=== PATIENT | female | born 1970 | race American Indian/Alaskan Native ===

== ENCOUNTER 2019-04-25 14:55 | Outpatient (CLI) | payer BC ==
--- NOTE | 2019-04-26 16:05 | Ultrasound Report ---
BILATERAL DIGITAL DIAGNOSTIC MAMMOGRAM WITH CAD -- 04/25/2019 BILATERAL COMPLETE BREAST ULTRASOUND INDICATION: Recall for bilateral asymmetries. F/U abnormal mammogram TECHNIQUE: Digital bilateral mammographic imaging was performed. Spot compression views were obtaine d. Complete ultrasound of all four (4) quadrants was performed. This examination was interpreted with the benefit of Computer-Aided Detection (CAD) analysis. COMPARISON: 04/02/2019 FINDINGS: Breast Density: The breasts are heterogeneously dense, which may obscure small masses. MAMMOGRAPHIC FINDINGS: Bilateral spot compression views demonstrate persistent bilateral circumscribe d densities. ULTRASOUND FINDINGS: Complete sonographic evaluation of all 4 quadrants and retroareolar region was p erformed. Ultrasound of the right breast demonstrated multiple benign cysts. A cyst at 12:00 3 cm f rom the nipple measures 4 x 3 x 4 mm. A cyst at 7:00 7 cm from the nipple measures 1.1 x 0.7 x 1.3 cm . A cyst at 6:00 6 cm from the nipple measures 8 x 5 x 7 mm. A cyst at 5:00 5 cm from the nipple ping ures 4 x 3 x 6 mm. Several additional smaller cysts. Mild benign duct ectasia. No solid mass or suspi cious shadowing. Ultrasound of the left breast demonstrated several benign cysts. The largest is at 2:00 6 cm from the nipple measuring 10 x 5 x 9 mm. It correlates with a mammographic density. Mild benign duct ectasia. No solid mass or suspicious shadowing. IMPRESSION: Bilateral benign cysts and no suspicious findings. Follow up recommendation: Routine yearly BI-RADS Category 2: Benign. A "normal" or negative report should not discourage follow up or biopsy of a clinically significant f inding. A written summary of these findings will be mailed to the patient. The patient will be entered into a mammography reporting system which will generate a reminder letter for the patient's next appointmen t at the appropriate interval. According to the [employer], yearly mammograms are recommended starting at age 40 and continuing as long as a woman is in good health. Breast MRI is recommended for women with an ratna roximately 20-25% or greater lifetime risk of breast cancer, including women with a strong family his tory of breast or ovarian cancer and women who have been treated for Hodgkin's disease. Signer Name: Toño Alfaro MD Signed: 04/26/2019 4:01 PM Workstation Name: [id number]
== END 2019-04-25 14:56 | disposition home or self-care (01) ==
LOC: SPVWC 14:55
PROVIDERS: ATTEND Family Medicine
DX: R92.8 Other abnormal and inconclusive findings on diagnostic imaging of breast (principal)
CPT/HCPCS: 77066

== ENCOUNTER 2021-03-06 03:44 | Inpatient (IN) | payer BC ==
--- NOTE | 2021-03-06 05:26 | XRay Report ---
CHEST 1 VIEW INDICATION / CLINICAL INFORMATION: FEVER. FINDINGS: SUPPORT DEVICES: None. HEART / MEDIASTINUM: No significant abnormality. LUNGS / PLEURA: Severe bilateral airspace pneumonia. Signer Name: Dontrell Nugent MD Signed: 03/06/2021 5:21 AM Workstation Name: [id number]
[2021-03-06 05:40] LABS: Basophils % (Auto) 0.3 % (0.0-1.8); Hematocrit 32.4 % (30.3-42.9); Hemoglobin 10.8 gm/dl (10.1-14.3); Lymphocytes # (Auto) 0.9 K/mm3 (1.2-5.4); Lymphocytes % (Auto) 17.3 % (13.4-35.0); Mean Corpuscular HGB Conc 33 % (30-34); Mean Corpuscular Volume 86 fl (79-97); Monocytes # (Auto) 0.4 K/mm3 (0.0-0.8); Monocytes % (Auto) 7.7 % (0.0-7.3); Platelet Count 285 K/mm3 (140-440); Red Blood Count 3.77 M/mm3 (3.65-5.03); Red Cell Distribution Width 14.8 % (13.2-15.2)
[2021-03-06 06:26] LABS: Alanine Aminotransferase 13 units/L (7-56); Albumin 3.9 g/dL (3.9-5); BUN/Creatinine Ratio 6; Blood Urea Nitrogen 6 mg/dL (7-17); Calcium 8.7 mg/dL (8.4-10.2); Hemolysis Index 0
--- NOTE | 2021-03-06 08:17 | Emergency Department Report ---
ED Shortness of Breath HPI - General Chief Complaint: Fever Stated Complaint: COUGHING WEAK FEVER Time Seen by Provider: 03/06/21 07:57 Source: patient Mode of arrival: Ambulatory Limitations: No Limitations - History of Present Illness Initial Comments: 50-year-old female, history of hypertension, "enlarged heart", presents to ED with Covid-like symptoms x1 week. Patient's reports fever, cough, dyspnea on exertion. Patient is unvaccinated. She reports that she underwent COVID-19 testing the day that her symptoms began, 1 week ago, and test result was negative. Patient states her 17-year-old daughter was also symptomatic and had a negative Covid result. Patient states her daughter has since improved, but her symptoms have worsened. 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 MD Complaint: shortness of breath, cough -: week(s) (1) Severity: moderate Consistency: intermittent Improves With: rest Worsens With: exertion Context: recent URI Associated Symptoms: fever, cough Treatments Prior to Arrival: none - Related Data Home Oxygen Therapy: No Allergies Allergy/AdvReac Type Severity Reaction Status Date / Time losartan Allergy Swelling Verified 03/06/21 04:23 ED Review of Systems ROS: Stated complaint: COUGHING WEAK FEVER Other details as noted in HPI Comment: All other systems reviewed and negative Constitutional: fever, weakness Respiratory: cough, shortness of breath Gastrointestinal: denies: vomiting, diarrhea Neurological: headache ED Past Medical Hx - Past Medical History Previous Medical History?: Yes Hx Hypertension: Yes - Surgical History Past Surgical History?: Yes Additional Surgical History: c section x 2 ED Physical Exam - General Limitations: No Limitations General appearance: alert, in no apparent distress - Head Head exam: Present: atraumatic, normocephalic - Eye Eye exam: Present: normal appearance, EOMI - ENT ENT exam: Present: mucous membranes moist - Neck Neck exam: Present: normal inspection - Respiratory Respiratory exam: Present: decreased breath sounds - Cardiovascular Cardiovascular Exam: Present: normal rhythm, tachycardia - GI/Abdominal GI/Abdominal exam: Present: soft. Absent: distended, tenderness - Extremities Exam Extremities exam: Present: normal inspection - Neurological Exam Neurological exam: Present: alert, oriented X3 - Psychiatric Psychiatric exam: Present: normal affect, normal mood - Skin Skin exam: Present: warm, dry, intact, normal color ED Course Vital Signs 03/06/21 03/06/21 03/06/21 04:26 08:05 08:16 Temperature 98.8 F Pulse Rate 119 H Respiratory 16 Rate Blood Pressure 120/86 143/87 O2 Sat by Pulse 96 100 100 Oximetry 03/06/21 03/06/21 03/06/21 08:31 08:45 09:01 Temperature Pulse Rate Respiratory Rate Blood Pressure 143/87 121/83 O2 Sat by Pulse 100 100 100 Oximetry 03/06/21 03/06/21 03/06/21 09:15 09:31 10:01 Temperature Pulse Rate 103 H 101 H 110 H Respiratory 16 18 28 H Rate Blood Pressure 121/83 121/83 134/83 O2 Sat by Pulse 100 100 100 Oximetry 03/06/21 03/06/21 10:31 11:01 Temperature Pulse Rate 99 H 94 H Respiratory 18 20 Rate Blood Pressure 134/83 133/82 O2 Sat by Pulse 100 100 Oximetry ED Medical Decision Making - Lab Data Result diagrams: 03/06/21 05:17 03/06/21 08:28 - Radiology Data Radiology results: report reviewed, image reviewed - Medical Decision Making 50-year-old unvaccinated female with Covid-like symptoms, presents to ED with shortness of breath. O2 sats decreased to 68% on room air with ambulation. Chest x-ray shows bilateral pneumonia. Covid markers ordered. Patient given Rocephin, azithromycin, and Decadron. Patient will be admitted by hospitalist, Dr. Stafford, for further management. - Differential Diagnosis Pneumonia, COVID-19 Critical Care Time: Yes Critical care time in (mins) excluding proc time.: 35 Critical care attestation.: If time is entered above; I have spent that time in minutes in the direct care of this critically ill patient, excluding procedure time. Critical Care Time: 35 min ED Disposition Clinical Impression: Suspected COVID-19 virus infection, Pneumonia, Acute respiratory failure with hypoxia Disposition: ADMITTED INPATIENT Is pt being admited?: Yes Condition: Stable Time of Disposition: 08:28
[2021-03-06] MEDS ORDERED: AZITHROMYCIN 250 MG TAB PO ONE (08:26)
[2021-03-06] MEDS ORDERED: cefTRIAXone/NS 1 GM/50 ML 1 GM/50 ML BAG IV ONE (08:26)
[2021-03-06] MEDS ORDERED: DEXAMETHASONE 4 MG TAB PO ONE (08:26)
[2021-03-06 09:49] LABS: C-Reactive Protein 1.5 mg/dL (0.00-1.30)
[2021-03-06] MEDS ORDERED: MORPHINE 2 MG/1 ML INJ IV PRN (10:00)
[2021-03-06] MEDS ORDERED: MORPHINE 4 MG/1 ML INJ IV PRN (10:00)
[2021-03-06] MEDS ORDERED: ONDANSETRON 4 MG/2 ML INJ IV PRN (10:00)
[2021-03-06] MEDS ORDERED: ACETAMINOPHEN 325 MG TAB PO PRN (10:00)
--- NOTE | 2021-03-06 10:29 | History and Physical Report ---
History of Present Illness Date of examination: 03/06/21 Date of admission: 03/06/21 08:37 Chief complaint: SOB Cough Fever History of present illness: Patient is 50 yo presented with fever, cough and shortness of breath for 1 week. She states she tested negative for Covid few days ago. Symptoms were getting worse therefore came to ED. 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 She was seen and evaluated in Emergency Department. Chest X ray revealed bilateral pneumonia concerning for Covid. Will admit for bilateral pneumonia, acute respiratory failure to r/o Covid-19 infection. Past History Past Medical History: hypertension Past Surgical History: Social history: lives with family, full code. denies: smoking Family history: no significant family history Medications and Allergies Allergies Allergy/AdvReac Type Severity Reaction Status Date / Time losartan Allergy Swelling Verified 03/06/21 04:23 Active Meds: Active Medications Acetaminophen (Acetaminophen 325 Mg Tab) 650 mg PO Q4H PRN PRN Reason: Pain MILD(1-3)/Fever >100.5/GARCIA Heparin Sodium (Porcine) (Heparin 5,000 Unit/1 Ml Vial) 5,000 unit SUB-Q Q8HR NGUYEN Morphine Sulfate (Morphine 2 Mg/1 Ml Inj) 2 mg IV Q4H PRN PRN Reason: Pain, Moderate (4-6) Morphine Sulfate (Morphine 4 Mg/1 Ml Inj) 4 mg IV Q4H PRN PRN Reason: Pain , Severe (7-10) Ondansetron HCl (Ondansetron 4 Mg/2 Ml Inj) 4 mg IV Q8H PRN PRN Reason: Nausea And Vomiting Sodium Chloride (Sodium Chloride 0.9% 10 Ml Flush Syringe) 10 ml IV BID NGUYEN Sodium Chloride (Sodium Chloride 0.9% 10 Ml Flush Syringe) 10 ml IV PRN PRN PRN Reason: LINE FLUSH Review of Systems All systems: negative (No headache, no abd pain, no leg swelling. All other systems reviewed and are negative.) Exam - Physical Exam Narrative exam: Gen:Not in acute distress, lying in bed, HEENT:Normocephalic, atraumatic Neck:supple, no JVD Lungs: bilateral rales, no wheeze Heart:S1 and S2 reg, no murmurs, rubs or gallop Abd:Soft, non tender, non distended, normal bowel sounds Ext:No edema. no clubbing, no cyanosis Neuro:Awake, alert, oriented X 3, moves all ext, No focal neurological signs - Constitutional Vitals: Temp Pulse Resp BP Pulse Ox 98.8 F 103 H 16 121/83 100 03/06/21 04:26 03/06/21 09:15 03/06/21 09:15 03/06/21 09:15 03/06/21 09:15 Results - Labs CBC & Chem 7: 03/06/21 05:17 03/06/21 08:28 Labs: Abnormal lab results 03/06/21 03/06/21 03/06/21 Range/Units 05:17 05:17 08:28 [place] % (Auto) 7.7 H (0.0-7.3) % Lymph # (Auto) 0.9 L (1.2-5.4) K/mm3 Seg Neutrophils % 74.7 H (40.0-70.0) % Sodium 131 L (137-145) mmol/L Potassium 3.5 L (3.6-5.0) mmol/L Chloride 94.7 L (98-107) mmol/L BUN 6 L (7-17) mg/dL Lactate Dehydrogenase 222 H (91-180) units/L C-Reactive Protein 1.50 H (0.00-1.30) mg/dL Assessment and Plan Acute resp failure due to bilateral pneumonia Admit Supplemental Oxygen, put on 4 l/min because sats drooped down to 68 on ambulation Rocephin iv Zithromax iv Decadron iv Bilateral pneumonia to r/o Covid Cont iv Antibiotics Hypertension Monitor BP Hyponatremia Monitor Hypokalemia Replace orally DVT prophylaxis Heparin subcut.
[2021-03-06] MEDS: HEPARIN 5,000 UNIT/1 ML VIAL SUB-Q SCH ×3 (11:09→21:43)
[2021-03-07] MEDS: HEPARIN 5,000 UNIT/1 ML VIAL SUB-Q SCH ×2 (05:45→14:45)
[2021-03-07 07:48] LABS: Basophils % (Auto) 0.1 % (0.0-1.8); Hemoglobin 10.6 gm/dl (10.1-14.3); Lymphocytes # (Auto) 1.1 K/mm3 (1.2-5.4); Lymphocytes % (Auto) 26.2 % (13.4-35.0); Mean Corpuscular HGB Conc 33 % (30-34); Mean Corpuscular Volume 86 fl (79-97); Monocytes # (Auto) 0.5 K/mm3 (0.0-0.8); Monocytes % (Auto) 12.9 % (0.0-7.3); Platelet Count 272 K/mm3 (140-440); Red Blood Count 3.72 M/mm3 (3.65-5.03); Red Cell Distribution Width 14.7 % (13.2-15.2)
[2021-03-07] MEDS ORDERED: AZITHROMYCIN/NS 500 MG/250 ML 500 MG/250 ML BAG IV SCH (08:00)
[2021-03-07] MEDS ORDERED: cefTRIAXone/NS 1 GM/50 ML 1 GM/50 ML BAG IV SCH (08:00)
[2021-03-07 08:10] LABS: Alanine Aminotransferase 14 units/L (7-56); Albumin 3.5 g/dL (3.9-5); BUN/Creatinine Ratio 11; Blood Urea Nitrogen 9 mg/dL (7-17); Calcium 8.9 mg/dL (8.4-10.2); Hemolysis Index 2
[2021-03-07 09:37] LABS: C-Reactive Protein 1.9 mg/dL (0.00-1.30)
[2021-03-07] MEDS ORDERED: dexAMETHasone 4 MG/ML VIAL IV SCH (10:00)
--- NOTE | 2021-03-07 10:17 | Progress Note ---
Assessment and Plan Assessment and plan: Covid-19 pneumonia Positive 03/06 Acute resp failure due to bilateral pneumonia Admit Supplemental Oxygen, put on 4 l/min because sats dropped down to 68 on ambulation Rocephin iv Zithromax iv Decadron iv Bilateral pneumonia due to Covid Cont iv Antibiotics Hypertension Monitor BP Hyponatremia Monitor Hypokalemia Replace orally DVT prophylaxis Heparin subcut. 03/07/21 patient with Covid -19 infection with acute respiratory failure. On supplemental Oxygen Consult ID Physician. Get serial infl markers. Continue Rocephin, Zithromax,Decadron iv daily History Interval history: shortness of breath Cough Hospitalist Physical - Physical exam Narrative exam: Gen:Not in acute distress, lying in bed, HEENT:Normocephalic, atraumatic Neck:supple, no JVD Lungs: bilateral rales, no wheeze Heart:S1 and S2 reg, no murmurs, rubs or gallop Abd:Soft, non tender, non distended, normal bowel sounds Ext:No edema. no clubbing, no cyanosis Neuro:Awake, alert, oriented X 3, moves all ext, No focal neurological signs - Constitutional Vitals: Temp Pulse Resp BP Pulse Ox 99.1 F 94 H 35 H 111/70 97 03/07/21 08:30 03/07/21 09:31 03/07/21 09:31 03/07/21 09:31 03/07/21 09:31 Results - Labs CBC & Chem 7: 03/07/21 06:52 03/07/21 08:48 Labs: Laboratory Last Values WBC 4.2 K/mm3 (4.5-11.0) L 03/07/21 06:52 RBC 3.72 M/mm3 (3.65-5.03) 03/07/21 06:52 Hgb 10.6 gm/dl (10.1-14.3) 03/07/21 06:52 Hct 32.0 % (30.3-42.9) 03/07/21 06:52 MCV 86 fl (79-97) 03/07/21 06:52 MCH 29 pg (28-32) 03/07/21 06:52 MCHC 33 % (30-34) 03/07/21 06:52 RDW 14.7 % (13.2-15.2) 03/07/21 06:52 Plt Count 272 K/mm3 (140-440) 03/07/21 06:52 Lymph % (Auto) 26.2 % (13.4-35.0) 03/07/21 06:52 [place] % (Auto) 12.9 % (0.0-7.3) H 03/07/21 06:52 Eos % (Auto) 0.0 % (0.0-4.3) 03/07/21 06:52 Baso % (Auto) 0.1 % (0.0-1.8) 03/07/21 06:52 Lymph # (Auto) 1.1 K/mm3 (1.2-5.4) L 03/07/21 06:52 [place] # (Auto) 0.5 K/mm3 (0.0-0.8) 03/07/21 06:52 Eos # (Auto) 0.0 K/mm3 (0.0-0.4) 03/07/21 06:52 Baso # (Auto) 0.0 K/mm3 (0.0-0.1) 03/07/21 06:52 Seg Neutrophils % 60.8 % (40.0-70.0) 03/07/21 06:52 Seg Neutrophils # 2.5 K/mm3 (1.8-7.7) 03/07/21 06:52 D-Dimer 159.27 ng/mlDDU (0-234) 03/07/21 08:48 Sodium 133 mmol/L (137-145) L 03/07/21 06:52 Potassium 4.1 mmol/L (3.6-5.0) 03/07/21 06:52 Chloride 97.2 mmol/L (98-107) L 03/07/21 06:52 Carbon Dioxide 26 mmol/L (22-30) 03/07/21 06:52 Anion Gap 14 mmol/L 03/07/21 06:52 BUN 9 mg/dL (7-17) 03/07/21 06:52 Creatinine 0.8 mg/dL (0.6-1.2) 03/07/21 06:52 Estimated GFR > 60 ml/min 03/07/21 06:52 BUN/Creatinine Ratio 11 % 03/07/21 06:52 Glucose 136 mg/dL (65-100) H 03/07/21 08:48 Calcium 8.9 mg/dL (8.4-10.2) 03/07/21 06:52 Ferritin 39.2 ng/mL (10.0-200.0) 03/07/21 08:48 Total Bilirubin 0.30 mg/dL (0.1-1.2) 03/07/21 06:52 AST 26 units/L (5-40) 03/07/21 06:52 ALT 14 units/L (7-56) 03/07/21 06:52 Alkaline Phosphatase 53 units/L (35-129) 03/07/21 06:52 Lactate Dehydrogenase 235 units/L (91-180) H 03/07/21 08:48 C-Reactive Protein 1.90 mg/dL (0.00-1.30) H 03/07/21 08:48 Total Protein 7.3 g/dL (6.3-8.2) 03/07/21 06:52 Albumin 3.5 g/dL (3.9-5) L 03/07/21 06:52 Albumin/Globulin Ratio 0.9 % 03/07/21 06:52 Procalcitonin < 0.05 ng/mL (<0.15) 03/06/21 08:28 Coronavirus (PCR) Positive (Negative) A 03/06/21 09:21 Microbiology: Microbiology 03/06/21 12:24 Peripheral/Venous Blood Culture - Preliminary Culture in Progress 03/06/21 12:24 Peripheral/Venous Blood Culture - Preliminary Culture in Progress Active Medications - Current Medications Current Medications: Generic Name Dose Route Start Last Admin Trade Name Chapis PRN Reason Stop Dose Admin Acetaminophen 650 mg 03/06/21 10:00 Acetaminophen 325 Mg Tab PO Q4H PRN Pain MILD(1-3)/Fever >100.5/GARCIA Dexamethasone 6 mg 03/07/21 10:00 Dexamethasone 4 Mg/Ml Vial IV 03/15/21 10:01 DAILY NGUYEN Heparin Sodium (Porcine) 5,000 unit 03/06/21 10:00 03/07/21 05:45 Heparin 5,000 Unit/1 Ml Vial SUB-Q 5,000 unit Q8HR NGUYEN Administration Azithromycin 500 mg in 250 mls @ 250 mls/hr 03/07/21 08:00 03/07/21 09:49 Zithromax/Ns IV 03/10/21 08:59 250 mls/hr Q24H NGUYEN Administration Ceftriaxone Sodium 1 gm in 50 mls @ 100 mls/hr 03/07/21 08:00 03/07/21 08:55 Rocephin/Ns 1 Gm/50 Ml IV 03/10/21 08:29 100 mls/hr Q24H NGUYEN Administration Protocol Morphine Sulfate 2 mg 03/06/21 10:00 Morphine 2 Mg/1 Ml Inj IV Q4H PRN Pain, Moderate (4-6) Morphine Sulfate 4 mg 03/06/21 10:00 Morphine 4 Mg/1 Ml Inj IV Q4H PRN Pain , Severe (7-10) Ondansetron HCl 4 mg 03/06/21 10:00 Ondansetron 4 Mg/2 Ml Inj IV Q8H PRN Nausea And Vomiting Sodium Chloride 10 ml 03/06/21 10:00 03/06/21 22:00 Sodium Chloride 0.9% 10 Ml Flush Syringe IV 10 ml BID NGUYEN Administration Sodium Chloride 10 ml 03/06/21 10:00 Sodium Chloride 0.9% 10 Ml Flush Syringe IV PRN PRN LINE FLUSH
[2021-03-07] MEDS ORDERED: dexAMETHasone 20 MG/5 ML VIAL ONE (10:38)
--- NOTE | 2021-03-07 11:39 | Consultation ---
History of Present Illness - Reason for Consult Consult date: 03/07/21 COVID-19 pneumonia Requesting physician: YASMANY PARMAR - History of Present Illness The patient is a 50-year-old female with hypertension admitted to the hospital with cough, shortness of breath, fever going on for a week. 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 Upon evaluation in the emergency room, chest x-ray showed bilateral pneumonia. Labs have revealed mild leukopenia, D- dimer 159, CRP 1.5, ferritin 28.7, LDH 235, procalcitonin 0.05. Patient tested positive for COVID-19. She has been hypoxic requiring oxygen by nasal cannula at 2 L/min. Review of Systems: reviewed in the chart, unable to obtain, minimize risk of transmission Past History Past Medical History: hypertension Past Surgical History: Social history: lives with family, full code. denies: smoking Family history: no significant family history Medications and Allergies Allergies Allergy/AdvReac Type Severity Reaction Status Date / Time losartan Allergy Swelling Verified 03/06/21 04:23 Active Meds: Active Medications Acetaminophen (Acetaminophen 325 Mg Tab) 650 mg PO Q4H PRN PRN Reason: Pain MILD(1-3)/Fever >100.5/GARCIA Heparin Sodium (Porcine) (Heparin 5,000 Unit/1 Ml Vial) 5,000 unit SUB-Q Q8HR [facility] Last Admin: 03/07/21 05:45 Dose: 5,000 unit Documented by: Morphine Sulfate (Morphine 2 Mg/1 Ml Inj) 2 mg IV Q4H PRN PRN Reason: Pain, Moderate (4-6) Morphine Sulfate (Morphine 4 Mg/1 Ml Inj) 4 mg IV Q4H PRN PRN Reason: Pain , Severe (7-10) Ondansetron HCl (Ondansetron 4 Mg/2 Ml Inj) 4 mg IV Q8H PRN PRN Reason: Nausea And Vomiting Sodium Chloride (Sodium Chloride 0.9% 10 Ml Flush Syringe) 10 ml IV BID [facility] Last Admin: 03/07/21 10:56 Dose: 10 ml Documented by: Sodium Chloride (Sodium Chloride 0.9% 10 Ml Flush Syringe) 10 ml IV PRN PRN PRN Reason: LINE FLUSH Physical Examination - Physical Exam Narrative exam: Physical Exam (reviewed in chart to minimize risk of transmission) Constitutional: deferred Head, Ears, Nose: deferred Eyes: deferred Neck: deferred Oral: deferred Cardiovascular: deferred Respiratory: deferred GI: deferred Musculoskeletal: deferred Skin: deferred Hem/Lymphatic: deferred Psych: deferred Neurological: deferred - Constitutional Vitals: Vital Signs Temp Pulse Resp BP Pulse Ox 99.1 F 94 H 35 H 111/70 97 03/07/21 08:30 03/07/21 09:31 03/07/21 09:31 03/07/21 09:31 03/07/21 09:31 Temperature -Last 24 Hours Temperature 99.1 F Temperature 98.8 F Results - Labs CBC & Chem 7: 03/07/21 06:52 03/07/21 08:48 Labs: Abnormal lab results 03/06/21 03/07/21 03/07/21 Range/Units 09:21 06:52 06:52 WBC 4.2 L (4.5-11.0) K/mm3 [place] % (Auto) 12.9 H (0.0-7.3) % Lymph # (Auto) 1.1 L (1.2-5.4) K/mm3 Sodium 133 L (137-145) mmol/L Chloride 97.2 L (98-107) mmol/L Glucose (65-100) mg/dL Lactate Dehydrogenase (91-180) units/L C-Reactive Protein (0.00-1.30) mg/dL Albumin 3.5 L (3.9-5) g/dL Coronavirus (PCR) Positive A (Negative) 03/07/21 Range/Units 08:48 WBC (4.5-11.0) K/mm3 [place] % (Auto) (0.0-7.3) % Lymph # (Auto) (1.2-5.4) K/mm3 Sodium (137-145) mmol/L Chloride (98-107) mmol/L Glucose 136 H (65-100) mg/dL Lactate Dehydrogenase 235 H (91-180) units/L C-Reactive Protein 1.90 H (0.00-1.30) mg/dL Albumin (3.9-5) g/dL Coronavirus (PCR) (Negative) - Imaging and Cardiology Chest x-ray: report reviewed, image reviewed (b/l airspace disease) Assessment and Plan Cultures: SARS CoV2 PCR: Positive 03/06/2021 blood culture: Process A/P: 50-year-old female with hypertension admitted with: #Bilateral pneumonia: Secondary to COVID-19 #Acute hypoxic respiratory failure: Secondary to above #Leukopenia: Likely secondary to viral illness Recs: IV/PO Dexamethasone x 10 days IV remdesivir x 5 days Does not meet criteria for Actemra prophylactic anticoagulation based on d-dimer per hospital protocol procalcitonin is low, abx not needed trend ferritin, d-dimer, CRP every 2-3 days Rangel Shaw MD, FACP [facility] O: [phone] F: [phone]
[2021-03-07] MEDS ORDERED: REMDESIVIR 200 MG in SODIUM CHLORIDE 0.9% 250ML 250 ML IV ONE (12:38)
[2021-03-07] MEDS ORDERED: dexAMETHasone 4 MG/ML VIAL IV ONE (13:26)
[2021-03-07 13:57] LABS: Alanine Aminotransferase 14 units/L (7-56); Albumin 3.7 g/dL (3.9-5); BUN/Creatinine Ratio 10; Blood Urea Nitrogen 9 mg/dL (7-17); Calcium 9.1 mg/dL (8.4-10.2); Hemolysis Index 0
[2021-03-07] MEDS: SODIUM CHLORIDE 0.9% 50 ML IVPB IV SCH (21:20)
[2021-03-08] MEDS: HEPARIN 5,000 UNIT/1 ML VIAL SUB-Q SCH ×4 (00:24→22:55)
[2021-03-08 08:54] LABS: Alanine Aminotransferase 14 units/L (7-56); Albumin 3.6 g/dL (3.9-5); Blood Urea Nitrogen 12 mg/dL (7-17); Hemolysis Index 0
[2021-03-08 08:59] LABS: BUN/Creatinine Ratio 17
[2021-03-08] MEDS: dexAMETHasone 4 MG/ML VIAL IV SCH (11:06)
--- NOTE | 2021-03-08 12:45 | Progress Note ---
Assessment and Plan Assessment and plan: Covid-19 pneumonia Positive 03/06/21 Acute resp failure due to bilateral pneumonia Admit Supplemental Oxygen, put on 4 l/min because sats dropped down to 68 on ambulation Rocephin iv Zithromax iv Decadron iv Bilateral pneumonia due to Covid Cont iv Antibiotics Hypertension Monitor BP Hyponatremia Monitor Hypokalemia Replace orally DVT prophylaxis Heparin subcut. 03/07/21 patient with Covid -19 infection with acute respiratory failure. On supplemental Oxygen Consult ID Physician. Get serial infl markers. Continue Rocephin, Zithromax,Decadron iv daily 03/08/21 Patient with Covid -19 pneumonia with acute respiratory failure. On supplemental Oxygen ID consulted, following Cont Remdesivir, Decadron History Interval history: shortness of breath Cough Hospitalist Physical - Physical exam Narrative exam: Gen:Not in acute distress, lying in bed, HEENT:Normocephalic, atraumatic Neck:supple, no JVD Lungs: bilateral rales, no wheeze Heart:S1 and S2 reg, no murmurs, rubs or gallop Abd:Soft, non tender, non distended, normal bowel sounds Ext:No edema. no clubbing, no cyanosis Neuro:Awake, alert, oriented X 3, moves all ext, No focal neurological signs - Constitutional Vitals: Temp Pulse Resp BP Pulse Ox 99.1 F 84 31 H 115/78 97 03/07/21 08:30 03/08/21 08:01 03/07/21 17:01 03/08/21 08:01 03/08/21 08:01 Results - Labs CBC & Chem 7: 03/07/21 06:52 03/08/21 06:51 Labs: Laboratory Last Values WBC 4.2 K/mm3 (4.5-11.0) L 03/07/21 06:52 RBC 3.72 M/mm3 (3.65-5.03) 03/07/21 06:52 Hgb 10.6 gm/dl (10.1-14.3) 03/07/21 06:52 Hct 32.0 % (30.3-42.9) 03/07/21 06:52 MCV 86 fl (79-97) 03/07/21 06:52 MCH 29 pg (28-32) 03/07/21 06:52 MCHC 33 % (30-34) 03/07/21 06:52 RDW 14.7 % (13.2-15.2) 03/07/21 06:52 Plt Count 272 K/mm3 (140-440) 03/07/21 06:52 Lymph % (Auto) 26.2 % (13.4-35.0) 03/07/21 06:52 Day % (Auto) 12.9 % (0.0-7.3) H 03/07/21 06:52 Eos % (Auto) 0.0 % (0.0-4.3) 03/07/21 06:52 Baso % (Auto) 0.1 % (0.0-1.8) 03/07/21 06:52 Lymph # (Auto) 1.1 K/mm3 (1.2-5.4) L 03/07/21 06:52 Day # (Auto) 0.5 K/mm3 (0.0-0.8) 03/07/21 06:52 Eos # (Auto) 0.0 K/mm3 (0.0-0.4) 03/07/21 06:52 Baso # (Auto) 0.0 K/mm3 (0.0-0.1) 03/07/21 06:52 Seg Neutrophils % 60.8 % (40.0-70.0) 03/07/21 06:52 Seg Neutrophils # 2.5 K/mm3 (1.8-7.7) 03/07/21 06:52 D-Dimer 159.27 ng/mlDDU (0-234) 03/07/21 08:48 Sodium 136 mmol/L (137-145) L 03/08/21 06:51 Potassium 4.6 mmol/L (3.6-5.0) 03/08/21 06:51 Chloride 99.6 mmol/L (98-107) 03/08/21 06:51 Carbon Dioxide 29 mmol/L (22-30) 03/08/21 06:51 Anion Gap 12 mmol/L 03/08/21 06:51 BUN 12 mg/dL (7-17) 03/08/21 06:51 Creatinine 0.7 mg/dL (0.6-1.2) 03/08/21 06:51 Estimated GFR > 60 ml/min 03/08/21 06:51 BUN/Creatinine Ratio 17 % 03/08/21 06:51 Glucose 97 mg/dL (65-100) 03/08/21 06:51 Calcium 9.0 mg/dL (8.4-10.2) 03/08/21 06:51 Ferritin 39.2 ng/mL (10.0-200.0) 03/07/21 08:48 Total Bilirubin 0.20 mg/dL (0.1-1.2) 03/08/21 06:51 AST 25 units/L (5-40) 03/08/21 06:51 ALT 14 units/L (7-56) 03/08/21 06:51 Alkaline Phosphatase 54 units/L (35-129) 03/08/21 06:51 Lactate Dehydrogenase 235 units/L (91-180) H 03/07/21 08:48 C-Reactive Protein 1.90 mg/dL (0.00-1.30) H 03/07/21 08:48 Total Protein 6.8 g/dL (6.3-8.2) 03/08/21 06:51 Albumin 3.6 g/dL (3.9-5) L 03/08/21 06:51 Albumin/Globulin Ratio 1.1 % 03/08/21 06:51 Procalcitonin < 0.05 ng/mL (<0.15) 03/06/21 08:28 Coronavirus (PCR) Positive (Negative) A 03/06/21 09:21 Microbiology: Microbiology 03/06/21 12:24 Peripheral/Venous Blood Culture - Preliminary NO GROWTH AFTER 24 HOURS 03/06/21 12:24 Peripheral/Venous Blood Culture - Preliminary NO GROWTH AFTER 24 HOURS Active Medications - Current Medications Current Medications: Generic Name Dose Route Start Last Admin Trade Name Freq PRN Reason Stop Dose Admin Acetaminophen 650 mg 03/06/21 10:00 Acetaminophen 325 Mg Tab PO Q4H PRN Pain MILD(1-3)/Fever >100.5/GARCIA Dexamethasone 8 mg 03/08/21 10:00 03/08/21 11:06 Dexamethasone 4 Mg/Ml Vial IV 03/15/21 10:01 8 mg DAILY NGUYEN Administration Heparin Sodium (Porcine) 5,000 unit 03/06/21 10:00 03/08/21 08:00 Heparin 5,000 Unit/1 Ml Vial SUB-Q 5,000 unit Q8HR NGUYEN Administration REMDESIVIR 100 mg/ Sodium 250 mls @ 500 mls/hr 03/08/21 21:00 Chloride IV 03/11/21 21:29 Q24HR@2100 NGUYEN Morphine Sulfate 2 mg 03/06/21 10:00 Morphine 2 Mg/1 Ml Inj IV Q4H PRN Pain, Moderate (4-6) Morphine Sulfate 4 mg 03/06/21 10:00 Morphine 4 Mg/1 Ml Inj IV Q4H PRN Pain , Severe (7-10) Ondansetron HCl 4 mg 03/06/21 10:00 Ondansetron 4 Mg/2 Ml Inj IV Q8H PRN Nausea And Vomiting Sodium Chloride 10 ml 03/06/21 10:00 03/08/21 11:06 Sodium Chloride 0.9% 10 Ml Flush Syringe IV 10 ml BID NGUYEN Administration Sodium Chloride 10 ml 03/06/21 10:00 Sodium Chloride 0.9% 10 Ml Flush Syringe IV PRN PRN LINE FLUSH Sodium Chloride 50 ml 03/07/21 21:00 03/07/21 21:20 Sodium Chloride 0.9% 50 Ml Ivpb IV 03/11/21 21:01 50 ml Q24HR@2100 NGUEYN Administration
[2021-03-08] MEDS: REMDESIVIR 100 MG in SODIUM CHLORIDE 0.9% 250ML 250 ML IV SCH (22:05)
[2021-03-08] MEDS: SODIUM CHLORIDE 0.9% 50 ML IVPB IV SCH (22:15)
[2021-03-09] MEDS: HEPARIN 5,000 UNIT/1 ML VIAL SUB-Q SCH ×3 (05:35→21:50)
[2021-03-09 07:01] LABS: Alanine Aminotransferase 16 units/L (7-56); Albumin 3.7 g/dL (3.9-5); Blood Urea Nitrogen 12 mg/dL (7-17); Calcium 9.1 mg/dL (8.4-10.2); Hemolysis Index 3
[2021-03-09 07:07] LABS: BUN/Creatinine Ratio 17
--- NOTE | 2021-03-09 09:56 | Progress Note ---
Assessment and Plan Assessment and plan: Covid-19 pneumonia Positive 03/06/21 Acute resp failure due to bilateral pneumonia Admit Supplemental Oxygen, put on 4 l/min because sats dropped down to 68 on ambulation Rocephin iv Zithromax iv Decadron iv Bilateral pneumonia due to Covid Cont iv Antibiotics Hypertension Monitor BP Hyponatremia Monitor Hypokalemia Replace orally DVT prophylaxis Heparin subcut. 03/07/21 patient with Covid -19 infection with acute respiratory failure. On supplemental Oxygen Consult ID Physician. Get serial infl markers. Continue Rocephin, Zithromax,Decadron iv daily 03/08/21 Patient with Covid -19 pneumonia with acute respiratory failure. On supplemental Oxygen ID consulted, following Cont Remdesivir, Decadron 03/09/21 Patient with Covid -19 pneumonia with acute respiratory failure. Currently on Oxygen at 4 l/min NC Patient desaturated this morning ID consulted, following Cont Remdesivir, Decadron History Interval history: shortness of breath Cough Patient said became more short of breath and desaturated this morning when being transferred up from ED,so put back on Oxygen Hospitalist Physical - Physical exam Narrative exam: Gen:Not in acute distress, lying in bed, HEENT:Normocephalic, atraumatic Neck:supple, no JVD Lungs: bilateral rales, no wheeze Heart:S1 and S2 reg, no murmurs, rubs or gallop Abd:Soft, non tender, non distended, normal bowel sounds Ext:No edema. no clubbing, no cyanosis Neuro:Awake, alert, oriented X 3, moves all ext, No focal neurological signs - Constitutional Vitals: Temp Pulse Resp BP Pulse Ox 97.7 F 67 20 136/87 4 L 03/09/21 05:09 03/09/21 05:09 03/09/21 05:09 03/09/21 05:09 03/09/21 06:26 Results - Labs CBC & Chem 7: 03/07/21 06:52 03/09/21 05:24 Labs: Laboratory Last Values WBC 4.2 K/mm3 (4.5-11.0) L 03/07/21 06:52 RBC 3.72 M/mm3 (3.65-5.03) 03/07/21 06:52 Hgb 10.6 gm/dl (10.1-14.3) 03/07/21 06:52 Hct 32.0 % (30.3-42.9) 03/07/21 06:52 MCV 86 fl (79-97) 03/07/21 06:52 MCH 29 pg (28-32) 03/07/21 06:52 MCHC 33 % (30-34) 03/07/21 06:52 RDW 14.7 % (13.2-15.2) 03/07/21 06:52 Plt Count 272 K/mm3 (140-440) 03/07/21 06:52 Lymph % (Auto) 26.2 % (13.4-35.0) 03/07/21 06:52 [place] % (Auto) 12.9 % (0.0-7.3) H 03/07/21 06:52 Eos % (Auto) 0.0 % (0.0-4.3) 03/07/21 06:52 Baso % (Auto) 0.1 % (0.0-1.8) 03/07/21 06:52 Lymph # (Auto) 1.1 K/mm3 (1.2-5.4) L 03/07/21 06:52 [place] # (Auto) 0.5 K/mm3 (0.0-0.8) 03/07/21 06:52 Eos # (Auto) 0.0 K/mm3 (0.0-0.4) 03/07/21 06:52 Baso # (Auto) 0.0 K/mm3 (0.0-0.1) 03/07/21 06:52 Seg Neutrophils % 60.8 % (40.0-70.0) 03/07/21 06:52 Seg Neutrophils # 2.5 K/mm3 (1.8-7.7) 03/07/21 06:52 D-Dimer 159.27 ng/mlDDU (0-234) 03/07/21 08:48 Sodium 135 mmol/L (137-145) L 03/09/21 05:24 Potassium 3.7 mmol/L (3.6-5.0) 03/09/21 05:24 Chloride 98.5 mmol/L (98-107) 03/09/21 05:24 Carbon Dioxide 29 mmol/L (22-30) 03/09/21 05:24 Anion Gap 11 mmol/L 03/09/21 05:24 BUN 12 mg/dL (7-17) 03/09/21 05:24 Creatinine 0.7 mg/dL (0.6-1.2) 03/09/21 05:24 Estimated GFR > 60 ml/min 03/09/21 05:24 BUN/Creatinine Ratio 17 % 03/09/21 05:24 Glucose 110 mg/dL (65-100) H 03/09/21 05:24 Calcium 9.1 mg/dL (8.4-10.2) 03/09/21 05:24 Ferritin 39.2 ng/mL (10.0-200.0) 03/07/21 08:48 Total Bilirubin 0.20 mg/dL (0.1-1.2) 03/09/21 05:24 AST 23 units/L (5-40) 03/09/21 05:24 ALT 16 units/L (7-56) 03/09/21 05:24 Alkaline Phosphatase 62 units/L (35-129) 03/09/21 05:24 Lactate Dehydrogenase 235 units/L (91-180) H 03/07/21 08:48 C-Reactive Protein 1.90 mg/dL (0.00-1.30) H 03/07/21 08:48 Total Protein 7.5 g/dL (6.3-8.2) 03/09/21 05:24 Albumin 3.7 g/dL (3.9-5) L 03/09/21 05:24 Albumin/Globulin Ratio 1.0 % 03/09/21 05:24 Procalcitonin < 0.05 ng/mL (<0.15) 03/06/21 08:28 Coronavirus (PCR) Positive (Negative) A 03/06/21 09:21 Microbiology: Microbiology 03/06/21 12:24 Peripheral/Venous Blood Culture - Preliminary NO GROWTH AFTER 48 HOURS 03/06/21 12:24 Peripheral/Venous Blood Culture - Preliminary NO GROWTH AFTER 48 HOURS Benito/IV: Voiding Method Toilet Active Medications - Current Medications Current Medications: Generic Name Dose Route Start Last Admin Trade Name Freq PRN Reason Stop Dose Admin Acetaminophen 650 mg 03/06/21 10:00 Acetaminophen 325 Mg Tab PO Q4H PRN Pain MILD(1-3)/Fever >100.5/GARCIA Dexamethasone 8 mg 08/29/21 10:00 03/08/21 11:06 Dexamethasone 4 Mg/Ml Vial IV 03/15/21 10:01 8 mg DAILY NGUYEN Administration Heparin Sodium (Porcine) 5,000 unit 03/06/21 10:00 03/09/21 05:35 Heparin 5,000 Unit/1 Ml Vial SUB-Q 5,000 unit Q8HR NGUYEN Administration REMDESIVIR 100 mg/ Sodium 250 mls @ 500 mls/hr 03/08/21 21:00 03/08/21 22:05 Chloride IV 03/11/21 21:29 500 mls/hr Q24HR@2100 NGUYEN Administration Morphine Sulfate 2 mg 03/06/21 10:00 Morphine 2 Mg/1 Ml Inj IV Q4H PRN Pain, Moderate (4-6) Morphine Sulfate 4 mg 03/06/21 10:00 Morphine 4 Mg/1 Ml Inj IV Q4H PRN Pain , Severe (7-10) Ondansetron HCl 4 mg 03/06/21 10:00 Ondansetron 4 Mg/2 Ml Inj IV Q8H PRN Nausea And Vomiting Sodium Chloride 10 ml 03/06/21 10:00 03/08/21 22:10 Sodium Chloride 0.9% 10 Ml Flush Syringe IV 10 ml BID NGUYEN Administration Sodium Chloride 10 ml 03/06/21 10:00 Sodium Chloride 0.9% 10 Ml Flush Syringe IV PRN PRN LINE FLUSH Sodium Chloride 50 ml 03/07/21 21:00 03/08/21 22:15 Sodium Chloride 0.9% 50 Ml Ivpb IV 03/11/21 21:01 50 ml Q24HR@2100 NGUYEN Administration
--- NOTE | 2021-03-09 10:45 | Progress Note ---
Assessment and Plan Cultures: SARS CoV2 PCR: Positive 03/06/2021 blood culture: Process A/P: 50-year-old female with hypertension admitted with: #Bilateral pneumonia: Secondary to COVID-19 #Acute hypoxic respiratory failure: Secondary to above #Leukopenia: Likely secondary to viral illness Recs: IV/PO Dexamethasone x 10 days IV remdesivir x 5 days Does not meet criteria for Actemra prophylactic anticoagulation based on d-dimer per hospital protocol procalcitonin is low, abx not needed trend ferritin, d-dimer, CRP every 2-3 days On room air now, no need to stay admitted to complete remdesivir. OK for DC from ID perspective if otherwise stable. ID will sign off. Please call with questions Geovanna Davis MD [facility] O: [phone] F: [phone] Subjective Date of service: 03/09/21 Interval history: Afebrile, on room air. Objective - Exam Narrative Exam: Physical exam deferred to reduce risk of transmission of COVID-19. Please refer to primary team's note. - Constitutional Vitals: Vital Signs Temp Pulse Resp BP Pulse Ox 97.7 F 67 20 136/87 4 L 03/09/21 05:09 03/09/21 05:09 03/09/21 05:09 03/09/21 05:09 03/09/21 06:26 Temperature -Last 24 Hours Temperature 97.7 F Temperature 98.1 F - Labs CBC & Chem 7: 03/07/21 06:52 03/09/21 05:24 Labs: Abnormal lab results 03/09/21 Range/Units 05:24 Sodium 135 L (137-145) mmol/L Glucose 110 H (65-100) mg/dL Albumin 3.7 L (3.9-5) g/dL
[2021-03-09] MEDS: dexAMETHasone 4 MG/ML VIAL IV SCH (11:58)
[2021-03-09] MEDS: SODIUM CHLORIDE 0.9% 50 ML IVPB IV SCH (21:51)
[2021-03-09] MEDS: REMDESIVIR 100 MG in SODIUM CHLORIDE 0.9% 250ML 250 ML IV SCH (21:51)
[2021-03-10 03:52] VITALS: BP 153/86
[2021-03-10 06:31] LABS: Hematocrit 30.6 % (30.3-42.9); Hemoglobin 9.9 gm/dl (10.1-14.3); Mean Corpuscular HGB Conc 33 % (30-34); Mean Corpuscular Volume 86 fl (79-97); Platelet Count 322 K/mm3 (140-440); Red Blood Count 3.57 M/mm3 (3.65-5.03)
[2021-03-10 06:44] LABS: Alanine Aminotransferase 25 units/L (7-56); Albumin 3.4 g/dL (3.9-5); Blood Urea Nitrogen 11 mg/dL (7-17); Calcium 8.9 mg/dL (8.4-10.2); Hemolysis Index 2
[2021-03-10 06:46] LABS: BUN/Creatinine Ratio 18
--- NOTE | 2021-03-10 07:54 | Discharge Summary ---
Providers - Providers Date of Admission: 03/06/21 08:37 Date of discharge: 03/10/21 Attending physician: TARIK LOPEZ 03/07/21 08:19 Consult to Physician [CONS] Routine Comment: Consulting Provider: CELESTINA ROJAS Physician Instructions: Reason For Exam: Covid Primary care physician: WEB CONTENT WRITER Hospitalization Reason for admission: covid Condition: Stable Hospital course: 50-year-old female with past medical history hypertension was admitted with cough and cold-like symptoms and diagnosis of Covid pneumonia, acute respiratory failure and sepsis. Sepsis present on admission and meets criteria given the tachypnea, tachycardia and diagnosis of pneumonia. 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 Upon evaluation in the emergency room chest x-ray showed bilateral pneumonia. The patient was seen by ID in consultation and treated with IV dexamethasone and started on IV remdesivir. Patient did not meet criteria for Actemra. Patient was maintained on room air and therefore was felt to receive maximal hospital benefit and could be discharged home from ID perspective. Dedicated discharge time 35 minutes. Disposition: 01 HOME / SELF CARE / HOMELESS Final Discharge Diagnosis (Prints w/discharge instructions): Acute hypoxic respiratory failure, bilateral pneumonia, leukopenia, sepsis, COVID-19 pneumonia Core Measure Documentation - Palliative Care Palliative Care/ Comfort Measures: Not Applicable - Core Measures Any of the following diagnoses?: none Exam - Constitutional Vitals: Temp Pulse Resp BP Pulse Ox 98.0 F 81 20 153/86 96 03/10/21 03:45 03/10/21 03:45 03/10/21 06:33 03/10/21 03:45 03/10/21 06:33 General appearance: Present: no acute distress, well-nourished - EENT Eyes: Present: PERRL ENT: hearing intact, clear oral mucosa - Neck Neck: Present: supple, normal ROM - Respiratory Respiratory effort: normal Respiratory: bilateral: CTA - Cardiovascular Heart Sounds: Present: S1 & S2. Absent: rub, click - Extremities Extremities: pulses symmetrical, No edema Peripheral Pulses: within normal limits - Abdominal General gastrointestinal: Present: soft, non-tender, non-distended, normal bowel sounds Female genitourinary: Present: normal - Integumentary Integumentary: Present: clear, warm, dry - Musculoskeletal Musculoskeletal: gait normal, strength equal bilaterally - Psychiatric Psychiatric: appropriate mood/affect, intact judgment & insight - Neurologic Neurologic: CNII-XII intact, moves all extremities Plan Activity: advance as tolerated Weight Bearing Status: Weight Bear as Tolerated Diet: regular Follow up with: PRIMARY CAREMD [Primary Care Provider] - 3-5 Days CELSETINA ROJAS MD [Staff Physician] - 7 Days Prescriptions: amLODIPine 5 mg PO DAILY #30 Dexamethasone 8 mg PO DAILY #6 tablet
[2021-03-10] MEDS: HEPARIN 5,000 UNIT/1 ML VIAL SUB-Q SCH ×2 (08:12→17:35)
[2021-03-10] MEDS ORDERED: DEXAMETHASONE 4 MG TAB PO SCH (10:00)
== END 2021-03-10 16:15 | disposition home or self-care (01) | DRG 871 ==
LOC: ED 03:44 → 3A 08:37
PROVIDERS: ADMIT Internal Medicine; ATTEND Hospitalist
PROC: XW033E5 Introduction of Remdesivir Anti-infective into Peripheral Vein, Percutaneous Approach, New Technology Group 5 (ICD-10-PCS; principal; 2021-03-08)
DX: A41.89 Other specified sepsis (principal); U07.1 COVID-19; J96.01 Acute respiratory failure with hypoxia; J12.82 Pneumonia due to coronavirus disease 2019; E87.1 Hypo-osmolality and hyponatremia; I10 Essential (primary) hypertension; E87.6 Hypokalemia; Z88.8 Allergy status to other drugs, medicaments and biological substances; D72.819 Decreased white blood cell count, unspecified
CPT/HCPCS: 36415; 71045; 80053; 82728; 82947; 83615; 84145; 85025; 85027; 85379; 86140; 87040; 94760; G0378; J0456; J0696; J1100; J1644; J7050; J8540; U0003

== ENCOUNTER 2021-06-01 14:17 | Outpatient (CLI) | payer BC ==
--- NOTE | 2021-06-03 12:16 | Mammography Report ---
DIGITAL SCREENING MAMMOGRAM WITH CAD, 06/01/2021 CLINICAL INFORMATION / INDICATION: Routine screening mammography. TECHNIQUE: Digital bilateral 2D mammography was obtained in the craniocaudal and mediolateral obliqu e projections. This examination was interpreted with the benefit of Computer-Aided Detection analysis . COMPARISON: 04/02/2019 FINDINGS: Breast Density: There are scattered areas of fibroglandular density. No dominant mass, suspicious calcifications, or architectural distortion in the left breast. Overall, patient has a changing pattern of nodularity consistent with fibrocystic change. However there is one enlarging well-circumscribed oval mass in the right breast at 5-6:00 that should be further evaluated with ultrasound to confirm benign etiology. This mass measures 1.9 cm and is lo cated in the 5-6:00 position, posterior depth. No other significant interval change. IMPRESSION: Enlarging mass in the right breast at 5-6:00 posterior depth. Recommend further evaluatio n with right breast ultrasound. Follow up recommendation: Ultrasound BI-RADS Category 0: Incomplete. Needs additional imaging evaluation and/or prior mammograms for yamil mcdermott. A "normal" or negative report should not discourage follow up or biopsy of a clinically significant f inding. A written summary of these findings will be mailed to the patient. The patient will be entered into a mammography reporting system which will generate a reminder letter for the patient's next appointmen t at the appropriate interval. The [employer] recommends yearly mammograms starting at age 40 and continuing as l dwayne as a woman is in good health. Breast MRI is recommended for women with an approximate 20-25% or greater lifetime risk of breast cancer, including women with a strong family history of breast or ova lacy cancer or who have been treated for Hodgkin's disease. Signer Name: Sheri Juares MD Signed: 06/03/2021 12:12 PM Workstation Name: [email or web address]
== END 2021-06-01 14:18 | disposition home or self-care (01) ==
LOC: SPVWC 14:17
PROVIDERS: ATTEND Family Medicine
DX: Z12.31 Encounter for screening mammogram for malignant neoplasm of breast (principal)
CPT/HCPCS: 77067

== ENCOUNTER 2021-10-12 08:02 | Outpatient (CLI) | payer BC ==
--- NOTE | 2021-10-12 08:57 | Ultrasound Report ---
ULTRASOUND BREAST RIGHT LIMITED, 10/12/2021 CLINICAL INFORMATION / INDICATION: ABNORMAL MAMMOGRAM. Patient presents as a callback from screening mammogram for further evaluation of a nodular density in the right breast. TECHNIQUE: Targeted ultrasound evaluation was performed of the area of interest. COMPARISON: Prior mammogram 06/01/2021 FINDINGS: Corresponding with the nodular density seen on recent mammogram, there is a benign simple cyst in the right breast 5:00 position located 7 cm from the nipple measuring up to 9 mm. No suspicious sonograp hic abnormality identified. IMPRESSION: 1. A benign cyst accounts for the recent mammographic finding. No suspicious sonographic abnormality identified. Follow up recommendation: Back to schedule. BI-RADS Category 2: BENIGN. A normal or "negative" report should not preclude biopsy or follow-up of a clinically suspicious find ing. Signer Name: Tiki Esteban MD Signed: 10/12/2021 8:53 AM Workstation Name: [id number]
== END 2021-10-12 08:03 | disposition home or self-care (01) ==
LOC: MAMMO 08:02
PROVIDERS: ATTEND Family Medicine
DX: N63.10 Unspecified lump in the right breast, unspecified quadrant (principal); R92.8 Other abnormal and inconclusive findings on diagnostic imaging of breast